=== PATIENT | female | born 1975 | race Caucasian/White ===

== ENCOUNTER 2016-07-04 22:12 | Emergency (ER) | payer OTHER ==
[2016-07-04 22:26] VITALS: BP 155/87; PULSE 89; TEMP 98.4; BMI 27.1
--- NOTE | 2016-07-04 23:54 | PDOC ---
History of Present Illness - General Chief Complaint: Wound Stated Complaint: L EAR PAIN Time Seen by Provider: 07/04/16 23:12 History Source: Patient Exam Limitations: No Limitations - History of Present Illness Timing/Duration: 24 hours Past History - Travel Traveled outside of the country in the last 30 days: No Close contact w/someone who was outside of country & ill: No - Past Medical History Allergies/Adverse Reactions: Allergies Allergy/AdvReac Type Severity Reaction Status Date / Time No Known Allergies Allergy Verified 07/04/16 22:22 Home Medications: Ambulatory Orders NK [No Known Home Medication] 07/04/16 Diabetes: Yes Hypercholesterolemia: Yes Psychiatric Problems: Yes (ANXIETY.) - Reproductive History (#): 10 Para: 3 Therapeutic (s) & number: Yes (5) Spontaneous : 2 - Psycho/Social/Smoking Cessation Hx Anxiety: Yes Suicidal Ideation: No Smoking Status: Yes Smoking History: Current every day smoker Have you smoked in the past 12 months: Yes Number of Cigarettes Smoked Daily: 10 Information on smoking cessation initiated: No Hx Alcohol Use: No Drug/Substance Use Hx: No Substance Use Type: None *Physical Exam - Vital Signs Last Vital Signs Temp Pulse Resp BP Pulse Ox 98.4 F 89 12 155/87 99 07/04/16 22:24 07/04/16 22:24 07/04/16 22:24 07/04/16 22:24 07/04/16 22:24 *DC/Admit/Observation/Transfer Diagnosis at time of Disposition: Induration of skin - Discharge Dispostion Disposition: HOME Admit: No - Patient Instructions Additional Instructions: Warm compresses Take your antibiotics that was prescribed (Keflex) from your last visit Take tylenol/motrin as needed for pain Return to the ER for severe/persistent or worsening symptoms
== END 2016-07-05 00:06 | disposition home or self-care (01) ==
LOC: JER 22:12
DX: R23.4 Changes in skin texture (principal); E11.9 Type 2 diabetes mellitus without complications; E78.00 Pure hypercholesterolemia, unspecified; F41.9 Anxiety disorder, unspecified; F17.210 Nicotine dependence, cigarettes, uncomplicated
CPT/HCPCS: 99281-25

== ENCOUNTER 2016-07-07 17:41 | Emergency (ER) | payer OTHER ==
[2016-07-07 17:55] VITALS: BP 130/67; PULSE 99; TEMP 98; BMI 26.7
--- NOTE | 2016-07-07 18:55 | PDOC ---
Suture Removal/Wound Check HPI - History of Present Illness Chief Complaint: Abscess Boil Stated Complaint: LT EAR ABCESS Time Seen by Provider: 07/07/16 18:21 History Source: Yes: Patient Exam Limitations: Yes: No Limitations Treated at: [facility] ED (Pt return for culture results; post I&D of ?? left ear abscess vs cyst x >1 month behind left ear; pt has appt with ENT surgeon on Thursday this week) Past History - Past Medical History Allergies/Adverse Reactions: Allergies No Known Allergies Allergy (Verified 07/07/16 17:55) Home Medications: Ambulatory Orders NK [No Known Home Medication] 07/04/16 - Reproductive History LMP: 02/18/13 Spontaneous : 2 - Social History Smoking History: Yes Smoking Status: Current every day smoker Number of Ciarettes Per Day: 10 Alcohol Use: none Drug Use: none Suture Removal/Wound Check PE - Physical Exam Location of Laceration/Wound: left: Ear (posterior left ear) *Review of Systems - Review of Systems Constitutional: No: Symptoms Reported HEENTM: No: Symptoms Reported Respiratory: No: Symptoms reported Neurological: Yes: Other (cystic lesion behind left ear) Medical Decision Making - Medical Decision Making 07/07/16 18:53 WC= negative on last visit; will allow ENT to see pt thursday for definitive treatment; no fever, no cellulitis *DC/Admit/Observation/Transfer Diagnosis at time of Disposition: Cyst Diagnosis at time of Disposition: (Ruled Out): Dermoid cyst of left ear - Discharge Dispostion Disposition: HOME Condition at time of disposition: Stable Admit: No - Patient Instructions Additional Instructions: please see ENT MD on Thursday
== END 2016-07-07 19:30 | disposition home or self-care (01) ==
LOC: JERFT 17:41
DX: D23.22 Other benign neoplasm of skin of left ear and external auricular canal (principal)
CPT/HCPCS: 99281-25

== ENCOUNTER 2016-12-29 06:01 | Day surgery (SDC) | payer OTHER ==
[2016-12-26 12:41] VITALS: BMI 25.7
[2016-12-29] MEDS ORDERED: ROCURONIUM BROMIDE 50 MG/5 ML VIAL ONE (10:39)
[2016-12-29] MEDS ORDERED: MIDAZOLAM HCL 2 MG/2 ML SINGLE DOSE VIAL ONE (10:39)
[2016-12-29] MEDS ORDERED: PROPOFOL 20 ML ONE (10:39)
[2016-12-29] MEDS ORDERED: clonazePAM 0.5 MG TABLET PO PRN (11:47)
[2016-12-29] MEDS ORDERED: PATIENT'S OWN MEDICATION (NON-FORMULARY) (Zolpidem Tartrate [Ambien] 10 MG) PO PRN (11:47)
--- NOTE | 2016-12-29 11:47 | HP ---
History & Physical Update - History History: No Change - Physical Physical: No Change - Assessment Assessment: No Change - Plan Plan: No Change (Pelvic Pain and Pressure with Fibroids - for Robotic total Hysterectomy and bilateral salpingectomy)
[2016-12-29] MEDS ORDERED: CEFAZOLIN 2 GM/D5W 50 ML IVPB ONE (11:48)
[2016-12-29] MEDS ORDERED: oxyCODONE HCL 5 MG TABLET PO PRN ×2 (11:51)
[2016-12-29] MEDS ORDERED: IBUPROFEN 800 MG/8 ML IJ IVPB PRN (11:51)
[2016-12-29] MEDS ORDERED: ceFAZolin SODIUM 1 GM VIAL ONE (12:00)
[2016-12-29] MEDS ORDERED: DEXAMETHASONE SOD PHOSPHATE 4 MG/1 ML VIAL ONE (12:00)
[2016-12-29] MEDS ORDERED: ceFAZolin SODIUM 1 GM VIAL IVPB ONE (12:01)
[2016-12-29] MEDS ORDERED: KETOROLAC TROMETHAMINE 30 MG/1 ML VIAL ONE (13:04)
[2016-12-29] MEDS ORDERED: NEOSTIGMINE METHYLSULFATE 0.5 MG/ML - 10 ML MDV ONE (13:19)
--- NOTE | 2016-12-29 13:23 | OP ---
Operative Note - Note: Operative Date: 12/29/16 Pre-Operative Diagnosis: pelvic pain and pressure, fibroid uterus Operation: Robotic Assisted Laparoscopic Total Hysterectomy and bilateral salpingectomy Findings: normal tubes and ovaries normal appearing uterus Surgeon: Lisa Barajas Cardiac Monitor Technician: Kori Angel Anesthesiologist/HYDRATOR: Corky Antunez Anesthesia: General Specimens Removed: Uterus, bilateral fallopian tubes, cervix Estimated Blood Loss (mls): 75 Operative Report Dictated: Yes
[2016-12-29] MEDS ORDERED: BUPIVACAINE HCL/PF 0.5% (5MG/ML) 10 ML VIAL ONE (13:29)
[2016-12-29] MEDS ORDERED: BUPIVACAINE HCL/PF 0.5% (5MG/ML) 10 ML VIAL IJ ONE (13:30)
[2016-12-29] MEDS ORDERED: PROMETHAZINE HCL 25 MG/1 ML VIAL IVPUSH PRN (13:50)
[2016-12-29] MEDS ORDERED: ONDANSETRON 4 MG/2 ML VIAL IVPUSH PRN (13:50)
[2016-12-29] MEDS ORDERED: LACTATED RINGERS SOLUTION 1,000 ML IV SCH ×2 (14:00)
[2016-12-29] MEDS: HYDROmorphone HCL CARPU-JECT 1 MG/1 ML DISP.SYRIN IVPB PRN ×2 (14:00→14:15)
[2016-12-29] MEDS ORDERED: HYDROmorphone HCL CARPU-JECT 2 MG/1 ML DISP.SYRIN ONE (14:13)
[2016-12-29] MEDS ORDERED: IBUPROFEN 800 MG/8 ML IJ IVPB ONE (14:37)
[2016-12-29] MEDS: CEFAZOLIN (PRE-DOCKED) 50 ML IVPB SCH (19:46)
[2016-12-29] MEDS ORDERED: ZOLPIDEM TARTRATE 5 MG TABLET PO PRN (21:26)
[2016-12-29] MEDS: HYDROXYCHLOROQUINE SO4 200 MG TABLET (FP) PO SCH (22:19)
[2016-12-30] MEDS: CEFAZOLIN (PRE-DOCKED) 50 ML IVPB SCH ×2 (04:01→11:21)
--- NOTE | 2016-12-30 06:18 | OP ---
DATE OF OPERATION: 12/29/2016 PREOPERATIVE DIAGNOSIS: Uterine fibroids. POSTOPERATIVE DIAGNOSIS: Uterine fibroids. PROCEDURE: Robotic laparoscopic total hysterectomy, bilateral salpingectomy. SURGEON: Lisa Giles MD MATH AND SCIENCE INSTRUCTOR: Kori Angel MD. ANESTHESIA: General anesthesia by Dr. Corky Levin. SPECIMENS REMOVED: Included uterus, bilateral fallopian tubes, and cervix. ESTIMATED BLOOD LOSS: 75 mL. COMPLICATIONS: None. DISPOSITION: Stable to PACU. COUNTS: Sponge, needle, and instrument counts correct at the end of the case. BRIEF HISTORY AND PROCEDURE: Patient is a 41-year-old female who had been seen in the office, known for the past 2 years, with complaints of pelvic pain and pressure. Patient had been treated conservatively and observed, and patient, after a two-year time period, had elected to undergo a hysterectomy. The patient was consented for robotic total laparoscopic hysterectomy and bilateral salpingectomy in the office. Consents were reconfirmed upon admission to the hospital on December 29, 2016. The patient and the surgeon were mutually identified in the holding area. The patient was then taken back to the operating room where she was given general anesthesia by Corky Levin and placed in the dorsal lithotomy position without issue. She was then prepped and draped in the usual sterile fashion, and a hard time-out was performed. A Huff catheter was placed under sterile conditions. Next, a [employer] uterine manipulator was placed without difficulty. Next an 8-mm infraumbilical incision was made with the scalpel, and the Veress needle was placed intraabdominally. The abdomen was insufflated with CO2 gas, and an 8-mm trocar was placed in the umbilicus. A camera was then inserted and after confirmation of intraabdominal placement at this time, the remaining trocars were placed under direct visualization, two on the left side of the abdomen, two on the right side of the abdomen, all 8 mm or less in size. Patient was then put in Trendelenburg position, and the robot was docked. Then, the instruments were loaded under direct visualization. Attention was first turned to the right utero-ovarian artery. The fallopian tube and utero-ovarian artery were grasped with the vessel sealer device, clamped, cauterized, and ligated with the vessel sealer in several passes. Next, a round ligament was clamped, cauterized, and ligated in several passes. The anterior leaf of the broad ligament was tented upwards, and the bladder flap was created anteriorly, sharply, until the bladder was dissected off the anterior portion of the uterus and the cervix. Uterine artery on the right side was clamped, ligated, and cut with the vessel sealer device in several passes until we reached the level of the uterosacral ligaments. Attention was then turned to the left side where the utero-ovarian anastomosis was clamped, ligated, and cut in several passes. The round ligament was clamped, ligated, and cut in several passes, and the anterior leaf of the broad ligament was tented upwards, and the bladder flap was continued from the left side until the bladder was completely dissected off the anterior portion of the uterus and cervix. Again, the uterine arteries on the left side were clamped, ligated, and cut with the vessel sealer device in several passes until we reached the level of the uterosacral ligaments. Next, the anterior colpotomy was created with sharp dissection, and the colpotomy was carried down in a 360-degree fashion until the uterus was completely detached from the vesicocervical junction. The uterus was then removed vaginally through the colpotomy at this time, for bleeding along the vaginal cuff was appreciated, which was cauterized with bipolar cautery. Next, using 0 V-Loc suture, the vaginal cuff was reapproximated in a running fashion until complete closure was achieved. Attention was then turned to bilateral ureters, which were identified and found to be of normal caliber and peristalsing. Dr. Pollack was called in for a brief consult to looke at the ureter on the right side as it appeared to be close to the dissection of the uterine arteries on that side. He observed the ureter and noted it to be normal at this time. He stated no concern for ureter injury at this time. The fallopian tubes had been elevated and dissected off their attachments to the ovary and were then removed from the abdominal cavity. All surgical sites were noted to be hemostatic. Irrigation and suction of the pelvis was completed. Again, all surgical sites were noted to be hemostatic. All needles and instruments were removed from the abdomen under direct visualization. All counts were reported to be correct. The robot was then undocked. The abdomen was desufflated. The incisions were reapproximated using Biosyn suture and Steri-Strips. The patient was then awoken from anesthesia, recovering in stable condition in the PACU after the procedure. LISA GILES DO /[id number]
[2016-12-30 07:58] LABS: BASOPHIL 0.5 % (0-2.0); EOSINOPHIL 0.5 % (0-4.5); MCHC 33.2 g/dl (32.0-36.0); MEAN CELL VOLUME 90.3 fl (80-96); MEAN PLT VOLUME 8.6 fl (7.5-11.1); NEUTROPHILS 64.6 % (42.8-82.8); PLATELET COUNT 164 K/MM3 (134-434); RDW 13.7 % (11.6-15.6); WHITE BLOOD COUNT 9.6 K/mm3 (4.0-10.0)
--- NOTE | 2016-12-30 09:14 | PN ---
Progress Note, Physician Chief Complaint: Pt. pain controlled, no GA complaints. - Current Medication List Current Medications: Active Medications Clonazepam (Klonopin -) 1 mg PO Q12H PRN PRN Reason: ANXIETY Duloxetine HCl (Cymbalta -) 30 mg PO DAILY [facility] Enoxaparin Sodium (Lovenox -) 40 mg SQ DAILY [facility] Hydromorphone HCl (Dilaudid Injection -) 1 mg IVPB Q4H PRN PRN Reason: PAIN Last Admin: 12/29/16 14:15 Dose: 0.5 mg Hydroxychloroquine Sulfate (Plaquenil -) 200 mg PO BID [facility] Last Admin: 12/29/16 22:19 Dose: 200 mg Lactated Ringer's (Lactated Ringers Solution) 1,000 mls @ 125 mls/hr IV ASDIR [facility] Last Admin: 12/30/16 02:35 Dose: 125 mls/hr Cefazolin Sodium (Ancef 1gm Ivpb (Pre-Docked)) 50 mls @ 100 mls/hr IVPB Q8H [facility] Stop: 12/30/16 12:29 Last Admin: 12/30/16 04:01 Dose: 100 mls/hr Ibuprofen (Caldolor Injection -) 800 mg IVPB Q6H PRN PRN Reason: FEVER Last Admin: 12/30/16 05:14 Dose: 800 mg Non-Formulary Medication (Glucosam/Chond/Hyalu/Cf Borate [Move Free Joint Health Tablet]) 1 each PO DAILY [facility] Non-Formulary Medication (Zolpidem Tartrate [Ambien]) 10 mg PO PRN PRN PRN Reason: INSOMNIA Oxycodone HCl (Roxicodone -) 5 mg PO Q4H PRN PRN Reason: PAIN Oxycodone HCl (Roxicodone -) 10 mg PO Q4H PRN PRN Reason: PAIN Zolpidem Tartrate (Ambien -) 10 mg PO HS PRN Last Admin: 12/29/16 22:19 Dose: 10 mg - Objective Vital Signs: Vital Signs Temperature 98.4 F 12/30/16 06:11 Pulse Rate 73 12/30/16 06:11 Respiratory Rate 17 12/30/16 06:11 Blood Pressure 123/73 12/30/16 06:11 O2 Sat by Pulse Oximetry (%) 100 12/29/16 15:20 Constitutional: Yes: Well Nourished, No Distress, Calm Musculoskeletal: Yes: WNL Neurological: Yes: WNL, Alert, Oriented Labs: CBC, BMP 12/30/16 07:30 Assessment/Plan POD#1 s/p Robotic total hysterectomy under GA. Doing well. D/C from anesthesia care.
[2016-12-30] MEDS ORDERED: DULoxetine HCL 30 MG CAPSULE.DR (FP) PO SCH (10:00)
[2016-12-30] MEDS ORDERED: ENOXAPARIN NA (PORCINE) 40 MG/0.4 ML DISP.SYRIN SQ SCH (10:00)
[2016-12-30] MEDS: HYDROXYCHLOROQUINE SO4 200 MG TABLET (FP) PO SCH (10:22)
[2016-12-30 10:34] VITALS: BP 118/71; PULSE 79; TEMP 98.8
--- NOTE | 2017-01-01 12:54 | PATH ---
Surgical Pathology Report Patient Name: EFRA FERNÁNDEZ [facility]. Rec. #: [id number] /Age/Gender: 1975 (Age: 41) / F Account: [id number] Location: AMBULATORY SURG Taken: 12/29/2016 Received: 12/31/2016 Reported: 01/01/2017 Physicians: Lisa Barajas M.D. Specimen(s) Received A: RIGHT FALLOPIAN TUBE B: LEFT FALLOPIAN TUBE C: UTERUS Clinical History Leiomyomatous uterus Final Diagnosis A. FALLOPIAN TUBE, RIGHT, SALPINGECTOMY: BENIGN FALLOPIAN TUBE WITH COMPLETE CROSS-SECTION. B. FALLOPIAN TUBE, LEFT SALPINGECTOMY: BENIGN FALLOPIAN TUBE WITH COMPLETE CROSS SECTION AND SMALL PARATUBAL CYST. C. UTERUS, ROBOTIC ASSISTED LAPAROSCOPIC HYSTERECTOMY: CERVIX: CHRONIC CERVICITIS. ENDOMETRIUM: PREDOMINANTLY INACTIVE PHASE MYOMETRIUM: ADENOMYOSIS. UTERINE SEROSA: WITHOUT SIGNIFICANT PATHOLOGIC CHANGES. Electronically Signed Godwin Lara M.D. Gross Description A. Received in formalin labeled "right fallopian tube" is a 3 cm in length fimbriated fallopian tube. The outer surfaces watson tipton and smooth. Sectioning reveals a pinpoint lumen. Willow Worker sections are submitted in 2 cassettes as follows: 1-fimbria; 2-cross sections of fallopian tube. B. Received in formalin labeled "left fallopian tube" is a 2.3 cm in length fimbriated fallopian tube. The outer surface is watson-corrales and smooth. Sectioning reveals a pinpoint lumen. Willow Worker sections are submitted in 2 cassettes as follows: 1-fimbria; 2-cross sections of fallopian tube. C. Received in formalin labeled "uterus" is a 67 g uterus with an attached cervix and no attached adnexa. The specimen measures 7.1 cm from the superior to inferior, 4.7 cm from left to right and 3.4 cm from anterior to posterior. The serosa is watson and smooth. The attached cervix measures 2 cm in length and averages 2.5 cm in diameter. The ectocervix is pink-watson, smooth and glistening. Endocervix is unremarkable. The endometrial cavity measures 3 cm in length and 1.7 cm from cornu to cornu. The endometrium is watson-red and averages 0.1 cm in thickness. The myometrium is watson and averages 1.6 cm in thickness. No intramural nodules are identified. Willow Worker sections are submitted in 6 cassettes as follows: 1-anterior cervix; 2-posterior cervix; 4-9-ytebeydb endomyometrium; 5-6-eukgfjdms endomyometrium. 12/31/201612/31/2016
== END 2016-12-30 12:30 | disposition home or self-care (01) ==
LOC: JASUSAT 06:01 → J3W 15:20 → JASUSAT 12-30 12:30
PROVIDERS: ATTEND Obstetrics & Gynecology
PROC: 0UT7FZZ Resection of Bilateral Fallopian Tubes, Via Natural or Artificial Opening With Percutaneous Endoscopic Assistance (ICD-10-PCS; 2016-12-29)
PROC: 8E0W4CZ Robotic Assisted Procedure of Trunk Region, Percutaneous Endoscopic Approach (ICD-10-PCS; 2016-12-29)
PROC: 0UT9FZZ Resection of Uterus, Via Natural or Artificial Opening With Percutaneous Endoscopic Assistance (ICD-10-PCS; principal; 2016-12-29 12:00)
PROC: 0UTC7ZZ Resection of Cervix, Via Natural or Artificial Opening (ICD-10-PCS; 2016-12-29 12:00)
DX: D25.9 Leiomyoma of uterus, unspecified (principal)
CPT/HCPCS: 58552; S2900; 36415; 85025; 88302-TC; 88307-TC; 94010; 94760

== ENCOUNTER 2017-01-14 16:16 | Emergency (ER) | payer OTHER ==
[2017-01-14 16:22] VITALS: BP 138/55; PULSE 96; BMI 25.0
[2017-01-14] MEDS ORDERED: ALBUTEROL SO4 2.5/IPRATROPIUM 0.5 INH SOL 3 ML VIAL.NEB. NEB ONE ×2 (17:13)
--- NOTE | 2017-01-14 17:18 | PDOC ---
History of Present Illness - General Chief Complaint: Cold Symptoms Stated Complaint: COUGHING Time Seen by Provider: 01/14/17 16:37 History Source: Patient Exam Limitations: No Limitations - History of Present Illness Initial Comments: 01/14/17 17:13 Patient is a 41-year-old female, history of hysterectomy 2 weeks ago, RA, Fibromyalgia, since the hysterectomy has been complaining of cough worse at night. No fever, pain to right side of chest reproduced with motion, states worse after coughing. No pain on inspiration. Green sputum. Past Medical History: GERD, high cholesterol, anxiety Allergies: No known allergies Medications: See medication list Family History: Non-contributory Social History: Denies smoking, alcohol use, or IVDU Review of Systems GENERAL/CONSTITUTIONAL: No fever or chills. No weakness. No weight change. HEAD, EYES, EARS, NOSE AND THROAT: No change in vision. No ear pain or discharge. No sore throat. CARDIOVASCULAR: No chest pain or shortness of breath. RESPIRATORY: Cough, no wheezing or hemoptysis GASTROINTESTINAL: No nausea, vomiting, diarrhea or constipation. No rectal bleeding. GENITOURINARY: No dysuria, frequency, or change in urination. MUSCULOSKELETAL: No joint or muscle swelling or pain. Right lateral back pain only reproduced with motion no pain on inspiration SKIN : No rash or easy bruising. NEUROLOGIC: No headache, vertigo, loss of consciousness, or loss of sensation. PSYCHIATRIC: No depression or anxiety. ENDOCRINE: No increased thirst. No abnormal weight change. HEMATOLOGIC/LYMPHATIC: No anemia, easy bleeding, or history of blood clots. ALLERGIC/IMMUNOLOGIC: No hives or skin allergy. No latex allergy. Physical Exam: GENERAL: The patient is awake, alert, and fully oriented, in no acute distress. EYES: Pupils equal, round and reactive to light, extraocular movements intact, sclera anicteric, conjunctiva clear. ENT: Ears normal, nares patent, oropharynx clear without exudates. Moist mucous membranes. No uvula deviation NECK: Normal range of motion, supple without lymphadenopathy, JVD, or masses. LUNGS: Breath sounds equal, clear to auscultation bilaterally. No wheezes, and no crackles. HEART: Regular rate and rhythm, normal S1 and S2 without murmur, rub or gallop. ABDOMEN: Soft, nontender, normoactive bowel sounds. No guarding, no rebound. No masses. No bruising or abrasions MUSCULOSKELETAL: Normal range of motion, no edema. No clubbing or cyanosis. No cords, erythema, or tenderness. No CVA Tenderness with fist palpation pain reproduced to right lateral torso with palpation of musculature.. NEUROLOGICAL: Cranial nerves II through XII grossly intact. Normal speech, normal gait. PSYCH: Normal mood, normal affect. SKIN: Warm, Dry, normal turgor, no rashes or lesions noted. 01/14/17 17:37 Past History - Past Medical History Allergies/Adverse Reactions: Allergies Allergy/AdvReac Type Severity Reaction Status Date / Time No Known Drug Allergies Allergy Verified 01/14/17 16:22 Milk Containing Products AdvReac "UPSET Verified 01/14/17 16:22 STOMACH" PEANUTS AdvReac "COLITIS" Uncoded 01/14/17 16:22 Home Medications: Ambulatory Orders Cholecalciferol (Vitamin D3) [Vitamin D3] 50,000 unit PO DAILY 12/26/16 Clonazepam [Klonopin] 1 mg PO PRN PRN 12/26/16 Duloxetine HCl [Cymbalta] 30 mg PO DAILY 12/26/16 Hydroxychloroquine Sulfate [Plaquenil] 200 mg PO BID 12/26/16 Zolpidem Tartrate [Ambien] 10 mg PO PRN PRN 12/26/16 Glucosam/Chond/Hyalu/Cf Borate [Move Free Joint Health Tablet] 1 each PO DAILY 12/29/16 Albuterol Sulfate Inhaler - [Ventolin HFA Inhaler -] 1 - 2 inh PO Q4H #1 inhaler 01/14/17 Diabetes: Yes (PRE) GI Disorders: Yes (COLITIS) Hypercholesterolemia: Yes Psychiatric Problems: Yes (ANXIETY.) Other medical history: rheum. arthriti, lyme disease - Surgical History Abdominal Surgery: Yes (TUMMY TUCK) - Reproductive History (#): 10 Para: 3 Therapeutic (s) & number: Yes (5) Spontaneous : 2 - Psycho/Social/Smoking Cessation Hx Anxiety: Yes Suicidal Ideation: No Smoking Status: Yes Smoking History: Current every day smoker Have you smoked in the past 12 months: Yes Number of Cigarettes Smoked Daily: 3 Information on smoking cessation initiated: No 'Breaking Loose' booklet given: 12/29/16 Hx Alcohol Use: No Drug/Substance Use Hx: No Substance Use Type: None Hx Substance Use Treatment: No *Physical Exam - Vital Signs Last Vital Signs Temp Pulse Resp BP Pulse Ox 96 H 18 138/55 97 01/14/17 16:19 01/14/17 16:19 01/14/17 16:19 01/14/17 16:19 Medical Decision Making - Medical Decision Making 01/14/17 17:18 A/P: Patient with productive green sputum cough, worse at night, productive. Pain to right lateral back, musculoskeletal in nature, reproduced with motion. Resolved after Combivent treatment given in emergency department, patient is afebrile, cough is viral in nature. Will DC patient home on albuterol inhaler, follow-up with PMD if symptoms persist in one week. I discussed the physical exam findings, ancillary test results and final diagnoses with the patient. I answered all of the patient's questions. The patient was satisfied with the care received and felt comfortable with the discharge plan and treatment plan. The patient will call to arrange follow-up and will return to the Emergency Department with any new, persistent or worsening symptoms. *DC/Admit/Observation/Transfer Diagnosis at time of Disposition: Cough - Discharge Dispostion Disposition: HOME Condition at time of disposition: Good Admit: No - Prescriptions Prescriptions: Albuterol Sulfate Inhaler - [Ventolin HFA Inhaler -] 1 - 2 inh PO Q4H #1 inhaler - Patient Instructions Printed Discharge Instructions: DI for Common Cold Additional Instructions: Keep head of bed elevated 45 when sleeping Treatments every 4 hours as needed Cool air humidifier Frequent chest PT Motrin for fever greater than 101 Followup in the primary care doctor's office in 2 days for evaluation. If any respiratory distress, increased cough, inability to drink, increased wheezing please return immediately to emergency department.
== END 2017-01-14 17:56 | disposition home or self-care (01) ==
LOC: JERFT 16:16
PROC: 3E0F7GC Introduction of Other Therapeutic Substance into Respiratory Tract, Via Natural or Artificial Opening (ICD-10-PCS; principal; 2017-01-14)
DX: R05 Cough (principal); F41.9 Anxiety disorder, unspecified; E78.00 Pure hypercholesterolemia, unspecified; F17.210 Nicotine dependence, cigarettes, uncomplicated
CPT/HCPCS: 94640; 99281-25

== ENCOUNTER 2017-01-28 05:59 | Day surgery (SDC) | payer OTHER ==
[2017-01-22 12:02] VITALS: BMI 25.2
[2017-01-28 06:55] VITALS: TEMP 97.7
[2017-01-28] MEDS ORDERED: BUPIVACAINE HCL/PF 2.5 MG/ML - 30 ML VIAL IJ ONE (07:17)
[2017-01-28] MEDS ORDERED: LIDOCAINE HCL 2% (20ML MULTI-DOSE VIAL) NR ONE (07:17)
[2017-01-28] MEDS ORDERED: MIDAZOLAM HCL 2 MG/2 ML SINGLE DOSE VIAL ONE (07:30)
[2017-01-28] MEDS ORDERED: PROPOFOL 20 ML ONE ×2 (07:38)
[2017-01-28] MEDS ORDERED: SUCCINYLCHOLINE CHLORIDE 200 MG/10 ML VIAL ONE (07:39)
[2017-01-28] MEDS ORDERED: LIDOCAINE HCL 2% (50ML VIAL) NR ONE (07:50)
[2017-01-28] MEDS ORDERED: oxyCODONE HCL 5 MG TABLET PO PRN (09:02)
[2017-01-28] MEDS ORDERED: ACETAMINOPHEN 325 MG TABLET (FP) PO PRN (09:02)
[2017-01-28] MEDS ORDERED: ONDANSETRON 4 MG/2 ML VIAL IVPUSH PRN (09:02)
[2017-01-28 09:09] VITALS: BP 121/71; PULSE 67
[2017-01-28] MEDS ORDERED: LACTATED RINGERS SOLUTION 1,000 ML IV SCH (09:15)
--- NOTE | 2017-01-30 09:46 | OP ---
DATE OF OPERATION: 01/28/2017 PREOPERATIVE DIAGNOSIS: 1. Right thumb trigger-finger. 2. Right ring trigger-finger. POSTOPERATIVE DIAGNOSIS: 1. Right thumb trigger-finger. 2. Right ring trigger-finger. OPERATIVE PROCEDURE: 1. Right thumb trigger-finger release. 2. Right ring trigger-finger release. SURGEON: Feliz Zuniga MD ANESTHESIA: Local with sedation. COMPLICATIONS: None. ESTIMATED BLOOD LOSS: Minimal. INDICATIONS FOR PROCEDURE: The patient is a 41-year-old female with the above findings, indicated for operative treatment. The risks, benefits, and alternatives were discussed with the patient at length. Proper informed consent was obtained. DESCRIPTION OF PROCEDURE: After proper identification of the patient and the correct operative site, the patient was brought to the operating room and placed supine on the operating room table. All bony prominences were well padded. Sedation was given by the anesthesiologist; local anesthesia was given with 2% lidocaine. Right upper extremity was prepped and draped in the usual sterile fashion. A well-padded tourniquet was placed with a sterile prep. Esmarch bandage was used to exsanguinate the left upper extremity. A tourniquet was inflated to 250 mmHg. Longitudinal incision was made over the A1 alondra to the ring finger. Blunt and sharp dissection was performed through subcutaneous tissues. A1 alondra was identified and released fully. A second incision was then made over the A1 alondra transversely to the thumb. Blunt and sharp dissection was performed down through subcutaneous tissues. A1 alondra was identified and divided longitudinally. Patient was then asked to flex and extend both of her digits, and no further triggering was noted. Wounds were irrigated with saline and repaired with 5-0 nylon sutures. Sterile dressings were applied. Patient was reversed from anesthesia and brought to the recovery room in stable condition. She tolerated the procedure well. FELIZ ZUNIGA M.D. [id number]
== END 2017-01-28 09:00 | disposition home or self-care (01) ==
LOC: FASU 05:59
PROVIDERS: ATTEND Orthopaedic Surgery Hand Surgery
PROC: 0LN70ZZ Release Right Hand Tendon, Open Approach (ICD-10-PCS; 2017-01-28)
PROC: 0LN70ZZ Release Right Hand Tendon, Open Approach (ICD-10-PCS; principal; 2017-01-28 07:52)
DX: M65.311 Trigger thumb, right thumb (principal); M65.341 Trigger finger, right ring finger
CPT/HCPCS: 84703

== ENCOUNTER 2017-09-09 16:07 | Day surgery (SDC) | payer OTHER ==
[2017-09-07 13:47] VITALS: BMI 26.6
[2017-09-09 17:17] VITALS: TEMP 97.8
[2017-09-09] MEDS ORDERED: LIDOCAINE HCL 2% (20ML MULTI-DOSE VIAL) NR ONE (17:57)
[2017-09-09] MEDS ORDERED: MIDAZOLAM HCL 2 MG/2 ML SINGLE DOSE VIAL ONE (18:19)
[2017-09-09] MEDS ORDERED: PROPOFOL 20 ML ONE (18:19)
[2017-09-09] MEDS ORDERED: KETOROLAC TROMETHAMINE 30 MG/1 ML VIAL ONE (18:38)
[2017-09-09] MEDS ORDERED: ONDANSETRON 4 MG/2 ML VIAL ONE (18:38)
[2017-09-09] MEDS ORDERED: DEXAMETHASONE SOD PHOSPHATE 4 MG/1 ML VIAL ONE (18:38)
[2017-09-09] MEDS ORDERED: LIDOCAINE HCL 2% (50ML VIAL) INF ONE (18:45)
[2017-09-09 19:43] VITALS: BP 110/68; PULSE 75
--- NOTE | 2017-09-11 09:01 | OP ---
DATE OF OPERATION: 09/09/2017 PREOPERATIVE DIAGNOSIS: 1. Right carpal tunnel syndrome. 2. Right long trigger-finger. POSTOPERATIVE DIAGNOSIS: 1. Right carpal tunnel syndrome. 2. Right long trigger-finger. OPERATIVE PROCEDURE: 1. Right carpal tunnel release. 2. Right long trigger-finger release. SURGEON: Feliz Zuniga MD ANESTHESIA: Local with sedation. COMPLICATIONS: None. ESTIMATED BLOOD LOSS: Minimal. INDICATIONS FOR PROCEDURE: The patient is a 42-year-old with the above findings, indicated for operative treatment. The risks, benefits, and alternatives were discussed with the patient at length, and proper informed consent was obtained. Of note, in the office, the patient was indicated for a carpal tunnel release. In the preoperative assessment area, the patient complained to me of right long finger triggering. Physical examination was consistent with trigger-finger. We discussed the treatment options including surgical and nonsurgical, and she decided to proceed with surgical release of the right long trigger-finger as well as the carpal tunnel. The risks, benefits, and alternatives were discussed with her at length, and proper informed consent was obtained. PROCEDURE: After proper identification of the patient and the correct operative site, the patient was brought to the operating room and placed supine on the operating table. All bony prominences were well padded. Sedation was given by the anesthesiologist. Local anesthesia was given with 2% lidocaine. Right upper extremity was prepped and draped in the usual sterile fashion. Well-padded tourniquet was placed with a sterile prep. Esmarch bandage to exsanguinate the right upper extremity. Tourniquet inflated to 250 mmHg. A longitudinal incision made over the carpal canal. Incision was taken sharply through the skin with blunt and sharp dissection through subcutaneous tissues. The palmar fascia was divided longitudinally. The transverse carpal ligament along with distal 4 cm of antebrachial fascia was divided longitudinally under direct visualization with loupe magnification. This provided complete release of the median nerve at the wrist. Wound was irrigated with saline and repaired with a 5-0 nylon suture. A second incision was made over the A1 aolndra to the long finger. Incision was taken sharply through the skin with blunt and sharp dissection through subcutaneous tissues. A1 alondra was identified and divided longitudinally. This was released. The patient was asked to flex and extend her finger, and no further triggering was noted. Wound was irrigated with saline and repaired with a 5-0 nylon suture. Sterile dressings were applied. Patient was reversed from any remaining anesthesia and brought to the recovery room in stable condition. She tolerated the procedure well. FELIZ ZUNIGA M.D. [id number]
== END 2017-09-09 19:45 | disposition home or self-care (01) ==
LOC: FASU 16:07
PROVIDERS: ATTEND Orthopaedic Surgery Hand Surgery
PROC: 0LN70ZZ Release Right Hand Tendon, Open Approach (ICD-10-PCS; 2017-09-09)
PROC: 01N50ZZ Release Median Nerve, Open Approach (ICD-10-PCS; principal; 2017-09-09 18:40)
DX: G56.01 Carpal tunnel syndrome, right upper limb (principal); M65.331 Trigger finger, right middle finger
CPT/HCPCS: 84703

== ENCOUNTER 2019-03-06 05:19 | Emergency (ER) | payer OTHER ==
[2019-03-06 05:46] VITALS: TEMP 98.2; BMI 25.7
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
[2019-03-06] MEDS ORDERED: SODIUM CHLORIDE 1,000 ML IV STA (05:53)
[2019-03-06 06:24] LABS: URINE APPEARANCE CLEAR; URINE BILIRUBIN NEGATIVE (NEGATIVE); URINE COLOR YELLOW; URINE GLUCOSE (UA) NEGATIVE (NEGATIVE); URINE KETONE NEGATIVE (NEGATIVE); URINE LEUK ESTERASE NEGATIVE (NEGATIVE); URINE NITRITE NEGATIVE (NEGATIVE); URINE PROTEIN NEGATIVE (NEGATIVE); URINE UROBILINOGEN 0.2 mg/dL (0.2-1.0)
[2019-03-06 06:35] LABS: INR 1.01 (0.83-1.09); PROTHROMBIN TIME (PATIENT) 11.9 SEC (9.7-13.0)
[2019-03-06 06:38] LABS: ACTIVATED PTT 44.2 SECONDS (25.2-36.5)
[2019-03-06 06:42] LABS: COCAINE, UR NEGATIVE ng/ml (CUTOFF=300); METHADONE, UR NEGATIVE ng/ml (CUTOFF=300); OPIATES, URI NEGATIVE ng/ml (CUTOFF=300); PHENCYCLIDINE,URINE NEGATIVE ng/ml (CUTOFF=25); URINE AMPHETAMINES NEGATIVE ng/ml (CUTOFF=500); URINE BARBITURATES NEGATIVE ng/ml (CUTOFF=200); URINE BENZODIAZEPINES NEGATIVE ng/ml (CUTOFF=200)
[2019-03-06 06:50] LABS: ALBUMIN 4.5 g/dl (3.4-5.0); ALK PHOS 71 U/L (45-117); ANION GAP 5 MMOL/L (8-16); BILIRUBIN,TOTAL 0.4 mg/dL (0.2-1); BLOOD UREA NITROGEN 14.1 mg/dL (7-18); CALCIUM 9.4 mg/dL (8.5-10.1); CHLORIDE 109 mmol/L (98-107); CO2 30 mmol/L (21-32); CREATININE 0.8 mg/dL (0.55-1.3); GLUCOSE,RANDOM 103 mg/dL (74-106); MAGNESIUM 2.4 mg/dL (1.8-2.4); PHOSPHOROUS 4.8 mg/dL (2.5-4.9); SGOT/AST 29 U/L (15-37); SGPT/ALT 39 U/L (13-61); SODIUM 144 mmol/L (136-145); TOT PROT 7.9 g/dl (6.4-8.2)
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
[2019-03-06 07:17] LABS: BASO % 1.2 % (0-2.0); EOS % 4.4 % (0-4.5); HEMATOCRIT 42.8 % (32.4-45.2); HEMOGLOBIN 14.1 GM/dL (10.7-15.3); LYMPH % 37.8 % (8-40); MCH 30.3 pg (25.7-33.7); MCHC 32.9 g/dl (32.0-36.0); MEAN CELL VOLUME 92.2 fl (80-96); MEAN PLT VOLUME 8.9 fl (7.5-11.1); NEUT % 49.6 % (42.8-82.8); PLATELET COUNT 231 K/MM3 (134-434); RBC 4.64 M/mm3 (3.60-5.2); WHITE BLOOD COUNT 5.3 K/mm3 (4.0-10.0)
--- NOTE | 2019-03-06 09:43 | PDOC ---
*Physical Exam - Vital Signs Last Vital Signs Temp Pulse Resp BP Pulse Ox 98.2 F 98 H 16 138/80 92 L 03/06/19 05:37 03/06/19 05:37 03/06/19 05:37 03/06/19 05:37 03/06/19 05:37 - Physical Exam General Appearance: Yes: Nourished, Appropriately Dressed. No: Apparent Distress HEENT: positive: Normal Voice. negative: Normal ENT Inspection (Patient is wearing color contacts) Neck: positive: Supple Respiratory/Chest: positive: Lungs Clear, Normal Breath Sounds Cardiovascular: positive: Regular Rhythm, Regular Rate, S1, S2 Vascular Pulses: Dorsalis-Pedis (R): 2+, Doralis-Pedis (L): 2+ Gastrointestinal/Abdominal: positive: Soft Rectal Exam: positive: deferred Lymphatic: negative: Adenopathy Musculoskeletal: positive: Normal Inspection Extremity: positive: Normal Capillary Refill, Normal Inspection, Normal Range of Motion Integumentary: positive: Normal Color, Dry, Warm Neurologic: positive: Fully Oriented, Alert, Normal Mood/Affect, Normal Response ED Treatment Course - LABORATORY CBC & Chemistry Diagram: 03/06/19 05:56 03/06/19 05:56 - ADDITIONAL ORDERS Additional order review: Laboratory Results 03/06/19 03/06/19 03/06/19 05:56 05:56 05:56 PT with INR INR PTT (Actin FS) Sodium Potassium Chloride Carbon Dioxide Anion Gap BUN Creatinine Est GFR (CKD-EPI)AfAm Est GFR (CKD-EPI)NonAf Random Glucose Lactic Acid 1.2 Calcium Phosphorus Magnesium Total Bilirubin AST ALT Alkaline Phosphatase Creatine Kinase Creatine Kinase Index CK-MB (CK-2) Troponin I Total Protein Albumin Serum , Qual Negative Urine Color Yellow Urine Appearance Clear Urine pH 6.0 Ur Specific [place] 1.002 L Urine Protein Negative Urine Glucose (UA) Negative Urine Ketones Negative Urine Blood Negative Urine Nitrite Negative Urine Bilirubin Negative Urine Urobilinogen 0.2 Ur Leukocyte Esterase Negative Salicylates Opiates Screen Methadone Screen Acetaminophen Barbiturate Screen Phencyclidine Screen Ur Amphetamines Screen MDMA (Ecstasy) Screen Benzodiazepines Screen Cocaine Screen U Marijuana (THC) Screen Alcohol, Quantitative 03/06/19 03/06/19 03/06/19 05:56 05:56 05:56 PT with INR INR PTT (Actin FS) Sodium 144 Potassium 4.0 Chloride 109 H Carbon Dioxide 30 Anion Gap 5 L BUN 14.1 Creatinine 0.8 Est GFR (CKD-EPI)AfAm 103.92 Est GFR (CKD-EPI)NonAf 89.66 Random Glucose 103 Lactic Acid Calcium 9.4 Phosphorus 4.8 Magnesium 2.4 Total Bilirubin 0.4 AST 29 ALT 39 Alkaline Phosphatase 71 Creatine Kinase 241 H Creatine Kinase Index 0.9 CK-MB (CK-2) 2.4 Troponin I < 0.02 Total Protein 7.9 Albumin 4.5 Serum , Qual Urine Color Urine Appearance Urine pH Ur Specific [place] Urine Protein Urine Glucose (UA) Urine Ketones Urine Blood Urine Nitrite Urine Bilirubin Urine Urobilinogen Ur Leukocyte Esterase Salicylates Opiates Screen Negative Methadone Screen Negative Acetaminophen Barbiturate Screen Negative Phencyclidine Screen Negative Ur Amphetamines Screen Negative MDMA (Ecstasy) Screen Negative Benzodiazepines Screen Negative Cocaine Screen Negative U Marijuana (THC) Screen Negative Alcohol, Quantitative 164.4 H 03/06/19 03/06/19 03/06/19 05:56 05:56 05:56 PT with INR 11.90 INR 1.01 PTT (Actin FS) 44.2 H Sodium Potassium Chloride Carbon Dioxide Anion Gap BUN Creatinine Est GFR (CKD-EPI)AfAm Est GFR (CKD-EPI)NonAf Random Glucose Lactic Acid Calcium Phosphorus Magnesium Total Bilirubin AST ALT Alkaline Phosphatase Creatine Kinase Creatine Kinase Index CK-MB (CK-2) Troponin I Total Protein Albumin Serum , Qual Urine Color Urine Appearance Urine pH Ur Specific [place] Urine Protein Urine Glucose (UA) Urine Ketones Urine Blood Urine Nitrite Urine Bilirubin Urine Urobilinogen Ur Leukocyte Esterase Salicylates < 1.7 L Opiates Screen Methadone Screen Acetaminophen <5.0 Barbiturate Screen Phencyclidine Screen Ur Amphetamines Screen MDMA (Ecstasy) Screen Benzodiazepines Screen Cocaine Screen U Marijuana (THC) Screen Alcohol, Quantitative 03/06/19 05:56 RBC 4.64 MCV 92.2 MCHC 32.9 RDW 14.0 MPV 8.9 Neutrophils % 49.6 D Lymphocytes % 37.8 D Monocytes % 7.0 Eosinophils % 4.4 D Basophils % 1.2 - Medications Given in the ED: ED Medications Discontinued Medications Generic Name Dose Route Start Last Admin Trade Name Freq PRN Reason Stop Dose Admin Sodium Chloride 1,000 mls @ 1,000 mls/hr 03/06/19 05:53 03/06/19 06:11 Normal Saline - IV 03/06/19 06:52 1,000 mls/hr ASDIR STA Administration Medical Decision Making - Medical Decision Making Patient signed out to me from night resident pending EKG and re-evaluation. Labs: Unremarkable aside from 164 alcohol level - Will allow patient to metabolize to less than 100 then DC her home in a cab. EKG: NS rate of 88, narrow complexes, normal axis, no hypertrophy, Juvenile inverted T waves in V1-V3, no ST elevations or depressions, no Q waves, NH - 146 , QTc - 462. Impression: Normal EKG Re-assessment: Patient feels well and requests to be discharged. She has no complaints at the present time. She is relieved to hear that the only substance in her body is alcohol. Disposition: Home with PCP fu. *DC/Admit/Observation/Transfer Diagnosis at time of Disposition: Alcohol intoxication Qualifiers: Complication of substance-induced condition: uncomplicated Qualified Code(s): F10.920 - Alcohol use, unspecified with intoxication, uncomplicated - Discharge Dispostion Disposition: HOME Condition at time of disposition: Stable Decision to Admit order: No - Referrals Referrals: [facility] [place] [facility] at [place] [Provider Group] - Patient Instructions Printed Discharge Instructions: DI for Alcohol Abuse Additional Instructions: Please call up the primary care doctor we are referring you to and schedule a follow up appointment in the next 3 to 5 days to make sure you are feeling well and getting better. Please do your best not to drink alcohol or use other substances. Come back to the ER immediately if you feel unsteady, have serious pain, get a high fever, start vomiting, or have any other new or worsening concerns. Thank you for coming to the [facility] ER. We hope you feel better soon! Print Language: MOLDOV[place] - Post Discharge Activity
[2019-03-06 09:59] VITALS: BP 130/80; PULSE 90
--- NOTE | 2019-03-06 16:33 | EKG ---
Test Reason : Blood Pressure : / mmHG Vent. Rate : 088 BPM Atrial Rate : 088 BPM P-R Int : 146 ms QRS Dur : 094 ms QT Int : 382 ms P-R-T Axes : 068 084 046 degrees QTc Int : 462 ms NORMAL SINUS RHYTHM NORMAL ECG NO PREVIOUS ECGS AVAILABLE Confirmed by KAMARI MOCK MD ([id number]) on 03/06/2019 4:32:47 PM Referred By: Confirmed By:KAMARI MOCK MD
== END 2019-03-06 10:00 | disposition home or self-care (01) ==
LOC: JER 05:19
PROC: 3E0337Z Introduction of Electrolytic and Water Balance Substance into Peripheral Vein, Percutaneous Approach (ICD-10-PCS; principal; 2019-03-06)
DX: F10.220 Alcohol dependence with intoxication, uncomplicated (principal); Y90.6 Blood alcohol level of 120-199 mg/100 ml
CPT/HCPCS: 36415; 80053; 80307; 81003; 82550; 82553; 83605; 83735; 84100; 84484; 84703; 85025; 85610; 85730; 93005; 93010; 96360; 99283-25; J7030

== ENCOUNTER 2020-01-18 23:05 | Emergency (ER) | payer OTHER ==
[2020-01-18 23:37] VITALS: BP 152/96; PULSE 97; TEMP 98.1; BMI 26.4
--- NOTE | 2020-01-18 23:55 | PDOC ---
*Physical Exam - Vital Signs Last Vital Signs Temp Pulse Resp BP Pulse Ox 98.1 F 97 H 18 152/96 99 01/18/20 23:23 01/18/20 23:23 01/18/20 23:23 01/18/20 23:23 01/18/20 23:23 Medical Decision Making - Medical Decision Making 01/18/20 23:55 Patient seen by the advanced practice provider under my supervision. Ancillary testing reviewed as necessary. I agree with plan as outlined by the advanced practice provider. Discharge - Discharge Information Problems reviewed: Yes Clinical Impression/Diagnosis: Sinusitis Condition: Improved Disposition: HOME - Additional Discharge Information Prescriptions: Azithromycin [Zithromax 250mg Tablets -] 250 mg PO UTDICT #6 tab - Follow up/Referral - Patient Discharge Instructions Additional Instructions: Use humidified air in her room to help moisturize her nasal passages. Drink plenty of fluids Take antibiotics as prescribed. Finish all antibiotics even if you feel better. You may want to eat yogurt while taking antibiotics. Take Tylenol or Motrin for fevers and/or pain. If symptoms continue follow-up with ENT specialist provided. Return to the emergency department for any new or worsening symptoms. Thank you very much for choosing us to provide your emergent health care needs. - Post Discharge Activity
[2020-01-19] MEDS ORDERED: SODIUM CHLORIDE 1,000 ML IV STA (00:10)
[2020-01-19] MEDS ORDERED: METOCLOPRAMIDE HCL INJECTION 10 MG/2 ML VIAL IVPUSH ONE (00:10)
[2020-01-19] MEDS ORDERED: KETOROLAC TROMETHAMINE 30 MG/1 ML VIAL IVPUSH ONE (00:10)
[2020-01-19] MEDS ORDERED: AMOX TR/POT CLAV 875MG/125MG TABLETS (FP) PO ONE (00:10)
--- NOTE | 2020-01-19 00:16 | PDOC ---
History of Present Illness - General Chief Complaint: Headache Stated Complaint: HEADACHE Time Seen by Provider: 01/18/20 23:52 History Source: Patient Exam Limitations: No Limitations - History of Present Illness Initial Comments: 01/19/20 00:14 HISTORY OF PRESENT ILLNESS: 44-year-old woman past medical history of COVID-19 (diagnosed 5 months ago has had multiple negative tests since), hysterectomy who presents emergency department for evaluation of headaches. Patient reports she is been getting chronic headaches since diagnosis of COVID. She reports the pain is frontal region rated 7/10 describes as a throbbing pressure sensation. Patient reports increased mucus drainage from her nose and increased pain with deep inspiration through her nose. She denies any blurry vision, dizziness, nausea or vomiting. Patient denies photophobia. No recent travel or sick contacts. PAST MEDICAL HISTORY: See HPI SURGICAL HISTORY: See HPI ALLERGIES: No known drug allergies REVIEW OF SYSTEMS General/Constitutional: Denies fever or chills. Denies weakness, weight change. HEENT: Denies change in vision. Denies ear pain or discharge. Denies sore throat. Cardiovascular: Denies chest pain or shortness of breath. Respiratory: Denies cough, wheezing, or hemoptysis. Gastrointestinal: Denies nausea, vomiting, diarrhea or constipation. Denies rectal bleeding. Genitourinary: Denies dysuria, frequency, or change in urination. Musculoskeletal: Denies joint or muscle swelling or pain. Denies neck or back pain. Skin and breasts: Denies rash or easy bruising. Neurologic: See HPI Psychiatric: Denies depression or anxiety. Endocrine: Denies increased thirst. Denies abnormal weight change. Hematologic/Lymphatic: Denies anemia, easy bleeding, or history of blood clots. Allergic/Immunologic: Denies hives or skin allergy. Denies latex allergy. PHYSICAL EXAM General Appearance: Well-appearing, appropriately dressed. No apparent distress, no intoxication. HEENT: EOMI, PERRLA, normal ENT inspection, normal voice, TMs normal, pharynx normal. No conjunctival pallor. No photophobia, scleral icterus. Tender to gentle palpation over the maxillary and frontal sinuses. Neck: Supple. Trachea midline. No tenderness, rigidity, carotid bruit, stridor, lymphadenopathy, or thyromegaly. Integumentary: Appropriate color, dry, warm. No cyanosis, erythema, jaundice or rash Neurologic: claims consultant II-XII intact. Fully oriented, alert. Appropriate mood/affect. Motor strength 5/5. No appreciable EOM palsy, facial droop or sensory deficit. Normal [id number] testing. Negative Kernig's and Brudzinski signs. Ambulatory with steady gait. No photophobia present. Past History - Medical History Allergies/Adverse Reactions: Allergies Allergy/AdvReac Type Severity Reaction Status Date / Time No Known Drug Allergies Allergy Verified 01/18/20 23:30 Milk Containing Products AdvReac Intermediate "UPSET Verified 01/18/20 23:30 STOMACH" soy AdvReac Intermediate DIARRHEA Verified 01/18/20 23:30 PEANUTS AdvReac Intermediate "COLITIS" Uncoded 01/18/20 23:30 Home Medications: Ambulatory Orders Clonazepam [Klonopin] 1 mg PO PRN PRN 12/26/16 Duloxetine HCl [Cymbalta] 30 mg PO DAILY 12/26/16 Hydroxychloroquine Sulfate [Plaquenil] 200 mg PO BID 12/26/16 Cholecalciferol (Vitamin D3) [Vitamin D3] 2,000 unit PO DAILY 01/22/17 Hydrocodone/Acetaminophen [[place] 10-325 Tablet] 1 tab PO Q6H PRN 01/22/17 Zolpidem Tartrate [Ambien Cr] 12.5 mg PO HS PRN 01/22/17 Multivitamins [Multivit ([facility] Formulary)] 1 tab PO DAILY 01/28/17 Albuterol Sulfate Inhaler - [Ventolin HFA Inhaler -] 1 - 2 inh PO Q4H PRN 09/07/17 Ketoconazole 200 mg PO DAILY 09/07/17 Azithromycin [Zithromax 250mg Tablets -] 250 mg PO UTDICT #6 tab 01/19/20 Anemia: No (LOW IRON) Asthma: Yes (HASN'T USED INHALER IN FEW MONTHS;ALLERGIC HYPER REACTIVE AIRWAY) Cancer: No Cardiac Disorders: No CVA: No COPD: No CHF: No Dementia: No Diabetes: Yes (PRE 2014) GI Disorders: Yes (COLITIS) Disorders: No HTN: No Hypercholesterolemia: No Liver Disease: No Psychiatric Problems: Yes (ANXIETY.) Seizures: No Thyroid Disease: No - Surgical History Abdominal Surgery: Yes ([facility] 2007) Appendectomy: No Cardiac Surgery: No Cholecystectomy: No Lung Surgery: No Neurologic Surgery: No Orthopedic Surgery: Yes (RIGHT HAND TRIGGER FINGER) - Reproductive History (#): 10 Para: 3 Therapeutic (s) & number: Yes (5) Spontaneous : 2 - Psycho-Social/Smoking History Smoking Status: Yes Smoking History: Never smoked Have you smoked in the past 12 months: Yes Number of Cigarettes Smoked Daily: 7 'Breaking Loose' booklet given: 01/28/17 - Substance Abuse Hx (Audit-C & DAST Scrn) How often the patient has a drink containing alcohol: Never Score: In Men: 4 or > Positive; In Women: 3 or > Positive: 0 Screen Result (Pos requires Nsg. Audit-10AR): Negative In the last yr the pt used illegal drug/Rx for NonMed reason: No Score: Yes response is considered Positive: 0 Screen Result (Positive result requires Nsg. DAST-10): Negative *Physical Exam - Vital Signs Last Vital Signs Temp Pulse Resp BP Pulse Ox 98.1 F 97 H 18 152/96 99 01/18/20 23:23 01/18/20 23:23 01/18/20 23:23 01/18/20 23:23 01/18/20 23:23 Medical Decision Making - Medical Decision Making 01/19/20 00:16 A/P: 44-year-old woman with frontal headache intermittently over months Tenderness to gentle palpation over frontal and maxillary sinuses. Otherwise physical exam is unremarkable Likely sinusitis but given extent of patient's pain I will provide rescue medication for headaches. Reglan 10 mg IV push Benadryl 25 mg IV push Toradol 30 mg IV push Normal saline 1 L IV bolus Augmentin 875 mg orally once Defer imaging at this time Reassess 01/19/20 01:51 Patient reports pain 2/10 after receiving rescue medications. Patient has refused Augmentin here. Patient does not want to take Augmentin secondary to GI side effects she has experienced in the past. Prescription for azithromycin sent to patient's preferred pharmacy. I discussed the physical exam findings, ancillary test results and final diagnoses with the patient. I answered all of the patient's questions. The patient was satisfied with the care received and felt comfortable with the discharge plan and treatment plan. The patient will call their primary care physician within 24 hours to arrange follow-up and will return to the Emergency Department with any new, persistent or worsening symptoms. Portions of this note have been documented using voice recognition software. As a result, errors may occur in the cancer registry manager process. Effort has been made to correct all grammatical and cancer registry manager error, but some may have been missed which may produce sporadic inaccurate cancer registry manager or nonsensical phrases. Discharge - Discharge Information Problems reviewed: Yes Clinical Impression/Diagnosis: Sinusitis Condition: Fair Disposition: HOME - Admission No - Additional Discharge Information Prescriptions: Azithromycin [Zithromax 250mg Tablets -] 250 mg PO UTDICT #6 tab - Follow up/Referral - Patient Discharge Instructions Additional Instructions: Use humidified air in her room to help moisturize her nasal passages. Drink plenty of fluids Take antibiotics as prescribed. Finish all antibiotics even if you feel better. You may want to eat yogurt while taking antibiotics. Take Tylenol or Motrin for fevers and/or pain. If symptoms continue follow-up with ENT specialist provided. Return to the emergency department for any new or worsening symptoms. Thank you very much for choosing us to provide your emergent health care needs. - Post Discharge Activity
[2020-01-19] MEDS ORDERED: METOCLOPRAMIDE HCL INJECTION 10 MG/2 ML VIAL ONE (00:17)
[2020-01-19] MEDS ORDERED: AMOX TR/POT CLAV 875MG/125MG TABLETS (FP) ONE (00:17)
[2020-01-19] MEDS ORDERED: KETOROLAC TROMETHAMINE 30 MG/1 ML VIAL ONE (00:18)
== END 2020-01-19 02:02 | disposition home or self-care (01) ==
LOC: JER 23:05
PROC: 3E0333Z Introduction of Anti-inflammatory into Peripheral Vein, Percutaneous Approach (ICD-10-PCS; principal; 2020-01-18)
PROC: 3E033GC Introduction of Other Therapeutic Substance into Peripheral Vein, Percutaneous Approach (ICD-10-PCS; 2020-01-18)
PROC: 3E0337Z Introduction of Electrolytic and Water Balance Substance into Peripheral Vein, Percutaneous Approach (ICD-10-PCS; 2020-01-18)
DX: J01.90 Acute sinusitis, unspecified (principal)
CPT/HCPCS: 99284-25

== ENCOUNTER 2020-09-15 16:30 | Emergency (ER) | payer OTHER | END 2020-09-15 20:19 | disposition home or self-care (01) | LOC: JVIRT 16:30 | DX: Z20.822 Contact with and (suspected) exposure to COVID-19 (principal) | CPT/HCPCS: C9803; G2251-GT; U0003 ==

== ENCOUNTER 2020-10-17 08:27 | Day surgery (SDC) | payer OTHER ==
[2020-10-11 16:11] VITALS: BMI 26.6
[2020-10-17] MEDS ORDERED: MIDAZOLAM HCL 2 MG/2 ML SINGLE DOSE VIAL ONE (09:25)
[2020-10-17] MEDS ORDERED: PROPOFOL 20 ML ONE (09:30)
[2020-10-17] MEDS ORDERED: LIDOCAINE HCL 2% (20ML MULTI-DOSE VIAL) ONE (09:40)
[2020-10-17] MEDS ORDERED: ceFAZolin SODIUM 1 GM VIAL ONE (10:09)
[2020-10-17] MEDS ORDERED: DEXAMETHASONE SOD PHOSPHATE 4 MG/1 ML VIAL ONE (10:09)
[2020-10-17 11:49] VITALS: BP 121/65; PULSE 70; TEMP 98
== END 2020-10-17 11:52 | disposition home or self-care (01) ==
LOC: FASU 08:27
PROVIDERS: ATTEND Orthopaedic Surgery Hand Surgery
PROC: 0LN80ZZ Release Left Hand Tendon, Open Approach (ICD-10-PCS; principal; 2020-10-17 10:20)
PROC: 01N50ZZ Release Median Nerve, Open Approach (ICD-10-PCS; 2020-10-17 10:20)
DX: G56.02 Carpal tunnel syndrome, left upper limb (principal); M65.342 Trigger finger, left ring finger
CPT/HCPCS: 94760

== ENCOUNTER 2020-10-29 03:20 | Inpatient (IN) | payer OTHER ==
[2020-10-29] MEDS ORDERED: dilTIAZem HCL 50 MG/10 ML - 10 ML VIAL IVPUSH ONE ×2 (03:24→03:59)
[2020-10-29] MEDS ORDERED: LACTATED RINGERS SOLUTION 1000 ML INFUS.BAG IV STA (03:24)
[2020-10-29] MEDS ORDERED: dilTIAZem HCL 125 MG/25 ML - 25 ML VIAL ONE ×2 (03:25→04:09)
[2020-10-29] MEDS ORDERED: dilTIAZem HCL 60 MG TABLET PO ONE (03:47)
[2020-10-29] MEDS ORDERED: dilTIAZem HCL 60 MG TABLET ONE ×2 (04:02→08:55)
[2020-10-29 04:08] LABS: BASO % 0.5 % (0-2.0); EOS % 0.4 % (0-4.5); HEMATOCRIT 42.3 % (32.4-45.2); HEMOGLOBIN 14.1 GM/dL (10.7-15.3); LYMPH % 50.9 % (8-40); MCH 30.9 pg (25.7-33.7); MCHC 33.4 g/dl (32.0-36.0); MEAN CELL VOLUME 92.4 fl (80-96); MEAN PLT VOLUME 9.5 fl (7.5-11.1); MONO % 7.4 % (3.8-10.2); NEUT % 40.8 % (42.8-82.8); PLATELET COUNT 229 K/MM3 (134-434); RBC 4.58 M/mm3 (3.60-5.2); RDW 14.8 % (11.6-15.6); WHITE BLOOD COUNT 7.8 K/mm3 (4.0-10.0)
[2020-10-29 04:16] LABS: INR 0.96 (0.83-1.09); PROTHROMBIN TIME (PATIENT) 11.8 SEC (9.7-13.0)
[2020-10-29 04:19] LABS: ACTIVATED PTT 30.5 SECONDS (25.2-36.5)
[2020-10-29 04:30] LABS: ALBUMIN 4.3 g/dl (3.4-5.0); BLOOD UREA NITROGEN 27.6 mg/dL (7-18); CALCIUM 9.1 mg/dL (8.5-10.1); MAGNESIUM 2.2 mg/dL (1.8-2.4)
[2020-10-29 04:33] LABS: PHOSPHOROUS 2.4 mg/dL (2.5-4.9)
[2020-10-29 04:35] LABS: BILIRUBIN,TOTAL 0.2 mg/dL (0.2-1); TOT PROT 7.8 g/dl (6.4-8.2)
[2020-10-29 04:35] LABS: URINE APPEARANCE CLEAR; URINE BILIRUBIN NEGATIVE (NEGATIVE); URINE COLOR YELLOW; URINE GLUCOSE (UA) NEGATIVE (NEGATIVE); URINE KETONE NEGATIVE (NEGATIVE); URINE LEUK ESTERASE NEGATIVE (NEGATIVE); URINE NITRITE NEGATIVE (NEGATIVE); URINE PROTEIN NEGATIVE (NEGATIVE); URINE UROBILINOGEN 0.2 mg/dL (0.2-1.0)
[2020-10-29 04:39] LABS: N-TERMINAL BNP 2512.4 pg/ml (5-125)
[2020-10-29 04:41] LABS: METHADONE, UR NEGATIVE ng/ml (CUTOFF=300); URINE BARBITURATES NEGATIVE ng/ml (CUTOFF=200); URINE BENZODIAZEPINES NEGATIVE ng/ml (CUTOFF=200)
[2020-10-29 04:42] LABS: OPIATES, URI NEGATIVE ng/ml (CUTOFF=300); PHENCYCLIDINE,URINE NEGATIVE ng/ml (CUTOFF=25)
[2020-10-29 04:45] LABS: COCAINE, UR NEGATIVE ng/ml (CUTOFF=300); URINE AMPHETAMINES NEGATIVE ng/ml (CUTOFF=500)
[2020-10-29] MEDS ORDERED: LORazepam 2 MG/ML SDV VIAL IVPUSH ONE (04:45)
[2020-10-29] MEDS ORDERED: LORazepam 2 MG/ML SDV VIAL ONE (04:57)
[2020-10-29] MEDS ORDERED: PATIENT'S OWN MEDICATION (NON-FORMULARY) (Clonazepam [Klonopin] 1 MG Tablet) PO PRN (08:07)
[2020-10-29] MEDS ORDERED: DIVALPROEX SODIUM 500 MG TABLET E.C. ONE (08:55)
[2020-10-29] MEDS ORDERED: ENOXAPARIN NA (PORCINE) 40 MG/0.4 ML DISP.SYRIN SQ ONE (08:55)
[2020-10-29] MEDS ORDERED: HYDROXYCHLOROQUINE SO4 200 MG TABLET (FP) PO ONE (08:55)
[2020-10-29] MEDS ORDERED: ASPIRIN COATED 81 MG TABLET.EC ONE (08:55)
[2020-10-29] MEDS: ASPIRIN COATED 81 MG TABLET.EC PO SCH (09:03)
[2020-10-29] MEDS: ENOXAPARIN NA (PORCINE) 40 MG/0.4 ML DISP.SYRIN SQ SCH (09:04)
[2020-10-29] MEDS: HYDROXYCHLOROQUINE SO4 200 MG TABLET (FP) PO SCH (09:04)
[2020-10-29] MEDS ORDERED: DIVALPROEX NA *ER* EXTEND REL 500 MG TABLET.SA (FP) PO SCH ×2 (10:00)
[2020-10-29] MEDS: DIVALPROEX SODIUM 500 MG TABLET E.C. PO SCH (10:20)
[2020-10-29 12:09] LABS: CHOLESTEROL 192 mg/dL (50-200)
[2020-10-29 12:10] LABS: LDL CHOLESTEROL (ONLY SJRH) 91 mg/dL (5-100); TRIGLYCERIDES 152 mg/dL (0-150)
[2020-10-29 12:13] LABS: HDL CHOLESTEROL 64 mg/dL (40-60)
[2020-10-29] MEDS ORDERED: NAPH,MB-DB/K PH,MBDB POWDER PACKET ONE (14:42)
[2020-10-29] MEDS: NAPH,MB-DB/K PH,MBDB POWDER PACKET PO SCH (14:48)
[2020-10-29] MEDS: oxyCODONE HCL 5 MG TABLET PO PRN (16:55)
[2020-10-29] MEDS ORDERED: oxyCODONE HCL 5 MG TABLET ONE (16:55)
[2020-10-29] MEDS: NICOTINE 7 MG/24 HOURS TOPICAL PATCH TD SCH (21:24)
[2020-10-30] MEDS: DIVALPROEX SODIUM 500 MG TABLET E.C. PO SCH ×3 (00:57→22:17)
[2020-10-30] MEDS: clonazePAM 0.5 MG TABLET PO PRN ×3 (00:58→22:18)
[2020-10-30] MEDS: NAPH,MB-DB/K PH,MBDB POWDER PACKET PO SCH ×4 (00:58→22:18)
[2020-10-30] MEDS: HYDROXYCHLOROQUINE SO4 200 MG TABLET (FP) PO SCH ×3 (00:58→22:18)
[2020-10-30 03:13] VITALS: BMI 26.3
[2020-10-30 07:39] LABS: BASO % 0.6 % (0-2.0); EOS % 1.2 % (0-4.5); HEMATOCRIT 43.4 % (32.4-45.2); HEMOGLOBIN 14.6 GM/dL (10.7-15.3); LYMPH % 46.4 % (8-40); MCH 31.2 pg (25.7-33.7); MCHC 33.6 g/dl (32.0-36.0); MEAN CELL VOLUME 92.8 fl (80-96); MEAN PLT VOLUME 9.2 fl (7.5-11.1); MONO % 7.2 % (3.8-10.2); NEUT % 44.6 % (42.8-82.8); PLATELET COUNT 225 K/MM3 (134-434); RBC 4.68 M/mm3 (3.60-5.2); RDW 14.8 % (11.6-15.6); WHITE BLOOD COUNT 7.5 K/mm3 (4.0-10.0)
[2020-10-30 07:58] LABS: CHLORIDE 107 mmol/L (98-107); SODIUM 139 mmol/L (136-145)
[2020-10-30 08:07] LABS: ALBUMIN 3.5 g/dl (3.4-5.0); ANION GAP 5 MMOL/L (8-16); CALCIUM 8.6 mg/dL (8.5-10.1); CO2 27 mmol/L (21-32); GLUCOSE,RANDOM 111 mg/dL (74-106); MAGNESIUM 2.3 mg/dL (1.8-2.4)
[2020-10-30 08:09] LABS: CHOLESTEROL 227 mg/dL (50-200)
[2020-10-30 08:10] LABS: CREATININE 0.7 mg/dL (0.55-1.3); PHOSPHOROUS 4.3 mg/dL (2.5-4.9); SGOT/AST 9 U/L (15-37); SGPT/ALT 20 U/L (13-61); TRIGLYCERIDES 143 mg/dL (0-150)
[2020-10-30 08:11] LABS: BILIRUBIN,TOTAL 0.3 mg/dL (0.2-1); LDL CHOLESTEROL (ONLY SJRH) 119 mg/dL (5-100)
[2020-10-30 08:12] LABS: TOT PROT 6.8 g/dl (6.4-8.2)
[2020-10-30 08:13] LABS: ALK PHOS 53 U/L (45-117); HDL CHOLESTEROL 73 mg/dL (40-60)
[2020-10-30] MEDS ORDERED: PT OWN MED DRAWER 7, Y5N ONE ×3 (09:22→21:15)
[2020-10-30] MEDS: ASPIRIN COATED 81 MG TABLET.EC PO SCH (10:02)
[2020-10-30] MEDS: ENOXAPARIN NA (PORCINE) 40 MG/0.4 ML DISP.SYRIN SQ SCH (10:02)
[2020-10-30] MEDS: NICOTINE 7 MG/24 HOURS TOPICAL PATCH TD SCH (11:35)
[2020-10-30] MEDS: oxyCODONE HCL 5 MG TABLET PO PRN ×2 (11:59→20:14)
[2020-10-30] MEDS ORDERED: dilTIAZem HCL 25 MG/5 ML - 5 ML VIAL IVPUSH ONE ×2 (12:53→18:32)
[2020-10-30] MEDS ORDERED: dilTIAZem HCL 50 MG/10 ML - 10 ML VIAL IVPUSH PRN (12:54)
[2020-10-30] MEDS ORDERED: dilTIAZem HCL 25 MG/5 ML - 5 ML VIAL IVPUSH PRN (12:55)
[2020-10-30] MEDS: dilTIAZem HCL 30 MG TABLET PO SCH ×2 (18:57→23:00)
[2020-10-31] MEDS: dilTIAZem HCL 30 MG TABLET PO SCH ×2 (06:42→12:30)
[2020-10-31] MEDS ORDERED: PT OWN MED DRAWER 7, Y5N ONE ×2 (09:29→09:30)
[2020-10-31] MEDS: ENOXAPARIN NA (PORCINE) 40 MG/0.4 ML DISP.SYRIN SQ SCH (09:36)
[2020-10-31] MEDS: MULTIVITAMINS (DAILY MVI) TABLET (FP) PO SCH (09:37)
[2020-10-31] MEDS: ASPIRIN COATED 81 MG TABLET.EC PO SCH (09:37)
[2020-10-31] MEDS: HYDROXYCHLOROQUINE SO4 200 MG TABLET (FP) PO SCH ×2 (09:38→21:57)
[2020-10-31] MEDS: NICOTINE 7 MG/24 HOURS TOPICAL PATCH TD SCH (09:39)
[2020-10-31] MEDS: DIVALPROEX SODIUM 500 MG TABLET E.C. PO SCH ×2 (09:39→21:57)
[2020-10-31 11:42] LABS: BASO % 0.9 % (0-2.0); EOS % 1.4 % (0-4.5); HEMATOCRIT 43.5 % (32.4-45.2); HEMOGLOBIN 14.8 GM/dL (10.7-15.3); LYMPH % 45.8 % (8-40); MCH 31.3 pg (25.7-33.7); MEAN PLT VOLUME 9.2 fl (7.5-11.1); MONO % 5.6 % (3.8-10.2); NEUT % 46.3 % (42.8-82.8); PLATELET COUNT 247 K/MM3 (134-434); RBC 4.73 M/mm3 (3.60-5.2); RDW 14.7 % (11.6-15.6); WHITE BLOOD COUNT 7.3 K/mm3 (4.0-10.0)
[2020-10-31 11:48] LABS: CALCIUM 9.3 mg/dL (8.5-10.1)
[2020-10-31 11:49] LABS: ALBUMIN 3.6 g/dl (3.4-5.0); BLOOD UREA NITROGEN 22.4 mg/dL (7-18); MAGNESIUM 2.3 mg/dL (1.8-2.4)
[2020-10-31 11:52] LABS: CREATININE 0.7 mg/dL (0.55-1.3)
[2020-10-31 11:54] LABS: BILIRUBIN,TOTAL 0.5 mg/dL (0.2-1)
[2020-10-31] MEDS: oxyCODONE HCL 5 MG TABLET PO PRN ×2 (15:55→21:57)
[2020-10-31] MEDS: METOPROLOL TARTRATE 25 MG TABLET (FP) PO SCH ×2 (17:12→23:19)
[2020-10-31] MEDS: clonazePAM 0.5 MG TABLET PO PRN (17:12)
[2020-10-31] MEDS ORDERED: METOPROLOL TARTRATE 5 MG/5 ML VIAL IVPUSH PRN (18:29)
[2020-10-31] MEDS ORDERED: dilTIAZem HCL 60 MG TABLET PO ONE (21:30)
[2020-10-31] MEDS: ATORVASTATIN CA 40 MG TABLET (FP) PO SCH (21:57)
[2020-10-31] MEDS ORDERED: ATORVASTATIN CA 20 MG TABLET (FP) PO SCH (22:00)
[2020-11-01] MEDS: METOPROLOL TARTRATE 25 MG TABLET (FP) PO SCH ×3 (06:32→18:53)
[2020-11-01] MEDS ORDERED: PT OWN MED DRAWER 7, Y5N ONE ×3 (09:43→21:21)
[2020-11-01 09:45] LABS: BASO % 0.4 % (0-2.0); EOS % 1.3 % (0-4.5); HEMATOCRIT 39.7 % (32.4-45.2); HEMOGLOBIN 13.3 GM/dL (10.7-15.3); LYMPH % 40.9 % (8-40); MCH 31.1 pg (25.7-33.7); MCHC 33.5 g/dl (32.0-36.0); MEAN CELL VOLUME 92.9 fl (80-96); MEAN PLT VOLUME 9.4 fl (7.5-11.1); MONO % 7.4 % (3.8-10.2); PLATELET COUNT 229 K/MM3 (134-434); RBC 4.28 M/mm3 (3.60-5.2); RDW 14.4 % (11.6-15.6); WHITE BLOOD COUNT 7.7 K/mm3 (4.0-10.0)
[2020-11-01] MEDS: HYDROXYCHLOROQUINE SO4 200 MG TABLET (FP) PO SCH ×2 (09:47→21:51)
[2020-11-01] MEDS: DIVALPROEX SODIUM 500 MG TABLET E.C. PO SCH ×2 (09:48→21:50)
[2020-11-01] MEDS: ASPIRIN COATED 81 MG TABLET.EC PO SCH (09:48)
[2020-11-01] MEDS: MULTIVITAMINS (DAILY MVI) TABLET (FP) PO SCH (09:48)
[2020-11-01] MEDS: NICOTINE 7 MG/24 HOURS TOPICAL PATCH TD SCH (09:48)
[2020-11-01 10:04] LABS: ALBUMIN 3.5 g/dl (3.4-5.0); BLOOD UREA NITROGEN 29.9 mg/dL (7-18); CALCIUM 9.2 mg/dL (8.5-10.1); MAGNESIUM 2.1 mg/dL (1.8-2.4)
[2020-11-01 10:07] LABS: CREATININE 0.8 mg/dL (0.55-1.3)
[2020-11-01 10:09] LABS: TOT PROT 6.4 g/dl (6.4-8.2)
[2020-11-01 10:11] LABS: BILIRUBIN,TOTAL 0.2 mg/dL (0.2-1)
[2020-11-01] MEDS ORDERED: LIDOCAINE VISCOUS 2% ORAL/TOP 20 ML UNIT-DOSE CUP ONE (13:04)
[2020-11-01] MEDS ORDERED: LIDOCAINE VISCOUS 2% ORAL/TOP 20 ML UNIT-DOSE CUP MM ONE (14:28)
[2020-11-01] MEDS ORDERED: LACTATED RINGERS SOLUTION 1,000 ML IV SCH (15:15)
[2020-11-01] MEDS: oxyCODONE HCL 5 MG TABLET PO PRN (16:49)
[2020-11-01] MEDS: ATORVASTATIN CA 40 MG TABLET (FP) PO SCH (21:50)
[2020-11-01] MEDS: APIXABAN 5 MG TABLET PO SCH (21:50)
[2020-11-01] MEDS: DRONEDARONE HCL 400 MG TAB (FP) PO SCH (21:50)
[2020-11-01] MEDS: clonazePAM 0.5 MG TABLET PO PRN (21:53)
[2020-11-01] MEDS ORDERED: APIXABAN 5 MG TABLET PO SCH (22:00)
[2020-11-02] MEDS: oxyCODONE HCL 5 MG TABLET PO PRN ×2 (01:07→09:26)
[2020-11-02] MEDS ORDERED: PT OWN MED DRAWER 7, Y5N ONE ×2 (08:26→09:13)
[2020-11-02 08:47] LABS: BASO % 1.1 % (0-2.0); EOS % 1.1 % (0-4.5); HEMATOCRIT 36.9 % (32.4-45.2); HEMOGLOBIN 12.4 GM/dL (10.7-15.3); MCH 31.1 pg (25.7-33.7); MCHC 33.6 g/dl (32.0-36.0); MEAN CELL VOLUME 92.8 fl (80-96); MEAN PLT VOLUME 8.9 fl (7.5-11.1); MONO % 9.6 % (3.8-10.2); NEUT % 54.2 % (42.8-82.8); PLATELET COUNT 208 K/MM3 (134-434); RBC 3.97 M/mm3 (3.60-5.2); RDW 14.8 % (11.6-15.6); WHITE BLOOD COUNT 6.9 K/mm3 (4.0-10.0)
[2020-11-02 09:16] LABS: ALBUMIN 3.3 g/dl (3.4-5.0); BLOOD UREA NITROGEN 26.9 mg/dL (7-18); CALCIUM 8.4 mg/dL (8.5-10.1); MAGNESIUM 2.2 mg/dL (1.8-2.4)
[2020-11-02 09:19] LABS: CREATININE 0.8 mg/dL (0.55-1.3)
[2020-11-02 09:21] LABS: BILIRUBIN,TOTAL 0.3 mg/dL (0.2-1)
[2020-11-02] MEDS: MULTIVITAMINS (DAILY MVI) TABLET (FP) PO SCH (09:27)
[2020-11-02] MEDS: DIVALPROEX SODIUM 500 MG TABLET E.C. PO SCH (09:27)
[2020-11-02] MEDS: ASPIRIN COATED 81 MG TABLET.EC PO SCH (09:27)
[2020-11-02] MEDS: HYDROXYCHLOROQUINE SO4 200 MG TABLET (FP) PO SCH (09:27)
[2020-11-02] MEDS: DRONEDARONE HCL 400 MG TAB (FP) PO SCH (09:27)
[2020-11-02] MEDS: clonazePAM 0.5 MG TABLET PO PRN (09:28)
[2020-11-02] MEDS: NICOTINE 7 MG/24 HOURS TOPICAL PATCH TD SCH (09:28)
[2020-11-02] MEDS: APIXABAN 5 MG TABLET PO SCH (09:28)
[2020-11-02 09:58] LABS: URINE APPEARANCE CLEAR; URINE BILIRUBIN NEGATIVE (NEGATIVE); URINE COLOR YELLOW; URINE GLUCOSE (UA) NEGATIVE (NEGATIVE); URINE KETONE NEGATIVE (NEGATIVE); URINE LEUK ESTERASE NEGATIVE (NEGATIVE); URINE NITRITE NEGATIVE (NEGATIVE); URINE PROTEIN NEGATIVE (NEGATIVE); URINE UROBILINOGEN 0.2 mg/dL (0.2-1.0)
[2020-11-02] MEDS ORDERED: APIXABAN 5 MG TABLET PO SCH (10:00)
[2020-11-02] MEDS ORDERED: DRONEDARONE HCL 400 MG TAB (FP) PO SCH ×2 (10:00)
[2020-11-02 10:37] VITALS: BP 98/53; PULSE 76; TEMP 97.6
== END 2020-11-02 14:30 | disposition home or self-care (01) | DRG 310 ==
LOC: JER 03:20 → JERBED 04:59 → J4S 10-30 00:37
PROVIDERS: ADMIT Hospitalist; ATTEND Nurse Practitioner Acute Care
PROC: B246ZZ4 Ultrasonography of Right and Left Heart, Transesophageal (ICD-10-PCS; principal; 2020-11-01 14:00)
DX: I48.91 Unspecified atrial fibrillation (principal); M06.9 Rheumatoid arthritis, unspecified; F31.9 Bipolar disorder, unspecified; F41.9 Anxiety disorder, unspecified; M79.7 Fibromyalgia; R00.0 Tachycardia, unspecified; F17.210 Nicotine dependence, cigarettes, uncomplicated
CPT/HCPCS: 36415; 71045-TC-FY; 80053; 80061; 80164; 80307; 81003; 82550; 83036; 83721; 83735; 83880; 84100; 84439; 84443; 84484; 84703; 85025; 85610; 85730; 86618; 86769; 86850; 86900; 86901; 87081; 87086; 93005; 93010; 93306-TC; 93312; 93325; 99285-25; C9803; U0003; U0005

== ENCOUNTER 2021-05-01 10:00 | Day surgery (SDC) | payer OTHER ==
[2021-04-25 11:00] VITALS: BMI 25.7
[2021-05-01] MEDS ORDERED: MIDAZOLAM HCL 2 MG/2 ML SINGLE DOSE VIAL ONE (12:50)
[2021-05-01] MEDS ORDERED: SUCCINYLCHOLINE CHLORIDE 200 MG/10 ML SYRINGE ONE (12:51)
[2021-05-01] MEDS ORDERED: PROPOFOL 20 ML ONE ×2 (12:51)
[2021-05-01 14:13] VITALS: BP 128/84
[2021-05-01 14:21] VITALS: PULSE 82; TEMP 98.3
== END 2021-05-01 14:21 | disposition home or self-care (01) ==
LOC: FASU 10:00
PROVIDERS: ATTEND Orthopaedic Surgery Hand Surgery
PROC: 0LN80ZZ Release Left Hand Tendon, Open Approach (ICD-10-PCS; 2021-05-01)
PROC: 0LN80ZZ Release Left Hand Tendon, Open Approach (ICD-10-PCS; principal; 2021-05-01 13:18)
DX: M65.322 Trigger finger, left index finger (principal); M65.332 Trigger finger, left middle finger

== ENCOUNTER 2022-08-09 15:00 | Emergency (ER) | payer OTHER ==
[2022-08-09 15:07] VITALS: BP 130/94; PULSE 88; RESP 18; TEMP 98; BMI 25.7
[2022-08-09] MEDS ORDERED: ACETAMINOPHEN 1000 MG/100 ML BAG IVPB ONE (15:45)
[2022-08-09] MEDS ORDERED: SODIUM CHLORIDE 1,000 ML IV STA (15:45)
[2022-08-09] MEDS ORDERED: ACETAMINOPHEN INJECTION 100 ML IVPB ONE (15:51)
[2022-08-09 16:35] LABS: EOS % 2.5 % (0-4.5); HEMATOCRIT 41.4 % (32.4-45.2); HEMOGLOBIN 13.7 GM/dL (10.7-15.3); LYMPH % 46.9 % (8-40); MCHC 33.1 g/dl (32.0-36.0); MEAN CELL VOLUME 90.7 fl (80-96); MEAN PLT VOLUME 8.1 fl (7.5-11.1); MONO % 6.9 % (3.8-10.2); NEUT % 42.7 % (42.8-82.8); PLATELET COUNT 241 10^3/uL (134-434); RBC 4.56 M/mm3 (3.60-5.2); RDW 14.8 % (11.6-15.6); WHITE BLOOD COUNT 3.7 K/mm3 (4.0-10.0)
[2022-08-09 17:15] LABS: CALCIUM 9.7 mg/dL (8.5-10.1)
[2022-08-09 17:17] LABS: ALBUMIN 3.9 g/dl (3.4-5.0)
[2022-08-09 17:19] LABS: BILIRUBIN,TOTAL 0.4 mg/dL (0.2-1); TOT PROT 7.1 g/dl (6.4-8.2)
[2022-08-09 17:21] LABS: CREATININE 0.7 mg/dL (0.55-1.3)
[2022-08-09 18:10] LABS: URINE APPEARANCE CLEAR; URINE BILIRUBIN NEGATIVE (NEGATIVE); URINE COLOR YELLOW; URINE GLUCOSE (UA) NEGATIVE (NEGATIVE); URINE KETONE NEGATIVE (NEGATIVE); URINE LEUK ESTERASE NEGATIVE (NEGATIVE); URINE NITRITE NEGATIVE (NEGATIVE); URINE PROTEIN NEGATIVE (NEGATIVE); URINE UROBILINOGEN 0.2 mg/dL (0.2-1.0)
== END 2022-08-09 20:34 | disposition home or self-care (01) ==
LOC: JER 15:00
PROC: 3E033GC Introduction of Other Therapeutic Substance into Peripheral Vein, Percutaneous Approach (ICD-10-PCS; principal; 2022-08-09)
DX: R10.10 Upper abdominal pain, unspecified (principal)
CPT/HCPCS: 36415; 76705-TC; 80053; 81003; 83690; 84484; 85025; 87077; 87086; 93005; 93010; 99285-25

== ENCOUNTER 2025-01-05 21:42 | Emergency (ER) | payer OTHER ==
[2025-01-05 22:00] VITALS: RESP 18; TEMP 98.8; BMI 25.7
[2025-01-05] MEDS ORDERED: DIPHTH,PERTUSS(ACELL),TET 0.5 ML DISP.SYRIN IM ONE (23:11)
[2025-01-05] MEDS ORDERED: SULFAMETHOXAZOLE/TRIMETHOPRIM 800MG/160MG D.S. TABLET ONE (23:11)
[2025-01-05] MEDS: DIPHTH,PERTUSS(ACELL),TET 0.5 ML DISP.SYRIN IM ONE (23:20)
[2025-01-05] MEDS: SULFAMETHOXAZOLE/TRIMETHOPRIM 800MG/160MG D.S. TABLET PO ONE (23:22)
[2025-01-06 00:14] VITALS: BP 145/76; PULSE 82
== END 2025-01-06 00:14 | disposition home or self-care (01) ==
LOC: JER 21:42
PROC: 0HQQXZZ Repair Finger Nail, External Approach (ICD-10-PCS; principal; 2025-01-05)
PROC: 3E0234Z Introduction of Serum, Toxoid and Vaccine into Muscle, Percutaneous Approach (ICD-10-PCS; 2025-01-05)
DX: S61.311A Laceration without foreign body of left index finger with damage to nail, initial encounter (principal); S00.83XA Contusion of other part of head, initial encounter; S10.93XA Contusion of unspecified part of neck, initial encounter; S50.11XA Contusion of right forearm, initial encounter; S50.12XA Contusion of left forearm, initial encounter; S20.219A Contusion of unspecified front wall of thorax, initial encounter; S21.052A Open bite of left breast, initial encounter; Z23 Encounter for immunization; Y04.0XXA Assault by unarmed brawl or fight, initial encounter; Y04.1XXA Assault by human bite, initial encounter; Y99.0 Civilian activity done for income or pay
CPT/HCPCS: 11760; 71046-TC-FY; 73130-TC-RT-FY; 90471; 90715; 99291